=== PATIENT | male | born 1995 | race American Indian/Alaskan Native ===

== ENCOUNTER 2017-01-15 13:03 | Emergency (ER) | payer MEDICAID, OTHER ==
[2017-01-15 14:37] VITALS: BP 128/83
[2017-01-15 15:05] LABS: Basophils % (Auto) 0.3 % (0.0-1.8); Eosinophils % (Auto) 0.3 % (0.0-4.3); Hematocrit 46.7 % (35.5-45.6); Hemoglobin 15.1 gm/dl (11.8-15.2); Mean Corpuscular HGB Conc 32 % (32-34); Mean Corpuscular Hemoglobin 30 pg (28-32); Mean Corpuscular Volume 93 fl (84-94); Platelet Count 163 K/mm3 (140-440); Red Blood Count 5.02 M/mm3 (3.65-5.03); Red Cell Distribution Width 13.7 % (13.2-15.2); White Blood Count 12.5 K/mm3 (4.5-11.0)
[2017-01-15 15:20] LABS: Alanine Aminotransferase 15 units/L (7-56); Albumin 4.7 g/dL (3.9-5); Albumin/Globulin Ratio 1.6 %; Alkaline Phosphatase 54 units/L (35-129); Anion Gap 18 mmol/L; BUN/Creatinine Ratio 16.66; Bilirubin,Total 0.5 mg/dL (0.1-1.2); Blood Urea Nitrogen 10 mg/dL (9-20); Calcium 9.1 mg/dL (8.4-10.2); Carbon Dioxide 27 mmol/L (22-30); Chloride 100.2 mmol/L (98-107); Glucose 91 mg/dL (75-100); Lipase 14 units/L (13-60); Potassium 3.7 mmol/L (3.6-5.0); Sodium 141 mmol/L (137-145); Total Protein 7.7 g/dL (6.3-8.2)
[2017-01-15 15:58] LABS: Bilirubin,Urine NEG (Negative); Ketones,Urine NEG (Negative)
[2017-01-15 15:59] LABS: Blood,Urine NEG (Negative); Leukocyte Esterase,Urine NEG (Negative); Mucus,Urine FEW /HPF; Nitrite,Urine NEG (Negative); Protein,Urine <15 mg/dL mg/dL (Negative); Urobilinogen,Urine < 2.0 mg/dL (<2.0)
--- NOTE | 2017-01-17 21:35 | ED Elopement Review ---
ED Pt Elopement review - Results review Lab results: Laboratory Tests 01/15/17 01/15/17 01/15/17 14:50 14:50 15:48 WBC 12.5 H RBC 5.02 Hgb 15.1 Hct 46.7 H MCV 93 MCH 30 MCHC 32 RDW 13.7 Plt Count 163 Lymph % (Auto) 6.3 L [place] % (Auto) 5.8 Eos % (Auto) 0.3 Baso % (Auto) 0.3 Lymph # 0.8 L [place] # 0.7 Eos # 0.0 Baso # 0.0 Seg Neutrophils % 87.3 H Seg Neutrophils # 10.9 H Sodium 141 Potassium 3.7 Chloride 100.2 Carbon Dioxide 27 Anion Gap 18 BUN 10 Creatinine 0.6 L Estimated GFR > 60 BUN/Creatinine Ratio 16.66 Glucose 91 Calcium 9.1 Total Bilirubin 0.5 AST 22 ALT 15 Alkaline Phosphatase 54 Total Protein 7.7 Albumin 4.7 Albumin/Globulin Ratio 1.6 Lipase 14 Urine Color Yellow Urine Turbidity Clear Urine pH 7.0 Ur Specific [place] 1.021 Urine Protein <15 mg/dl Urine Glucose (UA) Neg Urine Ketones Neg Urine Blood Neg Urine Nitrite Neg Urine Bilirubin Neg Urine Urobilinogen < 2.0 Ur Leukocyte Esterase Neg Urine WBC (Auto) 1.0 Urine RBC (Auto) 2.0 U Epithel Cells (Auto) < 1.0 Urine Mucus Few - Call Back decision Pt Call Back Decision: No action required
== END 2017-01-15 21:05 | disposition left against medical advice (07) ==
LOC: ED 13:03
DX: R10.9 Unspecified abdominal pain (principal); R11.2 Nausea with vomiting, unspecified; R19.7 Diarrhea, unspecified; Z53.21 Procedure and treatment not carried out due to patient leaving prior to being seen by health care provider
CPT/HCPCS: 36415; 80053; 81001; 83690; 85025

== ENCOUNTER 2018-12-13 09:07 | Emergency (ER) | payer SELFPAY ==
[2018-12-13 09:29] VITALS: BP 130/64
--- NOTE | 2018-12-13 09:55 | Emergency Department Report ---
ED Rash HPI - HPI Chief Complaint: Extremity Injury, Lower Stated Complaint: FOOT PAIN EXTREME Time Seen by Provider: 12/13/18 09:36 Location: Lower Extremities Rash Symptoms: No Itching, No Facial Swelling, No Tongue/Oral Swelling, No Breathing Difficulties, No Choking Sensation, No Wheezing/Dyspnea, No Peeling, No Blistering, No Fever, No Lightheaded, No Malaise, No Myalgias Severity: mild Other History: PT IS A 23 YO AA MALE WHO COMES TO THE ER WITH FOOT PAIN. HE HAS BEEN SEEN HERE BEFORE. HE THINKS HE STEPPED ON A LEIGHANN THORN. CONSERVATIVE TREATMENT HAS BEEN DONE BUT PT STILL CO FOOT PAIN. THE AREA TODAY LOOKS MORE LIKE A PLANTAR WART THAN THORN. THIS AREA DOES LOOK DIFFERENT THAN AT THIS LAST VISIT. ED Review of Systems ROS: Stated complaint: FOOT PAIN EXTREME Other details as noted in HPI Comment: All other systems reviewed and negative Eyes: denies: as per HPI ENT: denies: ear pain Cardiovascular: denies: orthopnea Endocrine: denies: excessive sweating Gastrointestinal: denies: abdominal pain Genitourinary: denies: urgency Musculoskeletal: denies: back pain Skin: lesions Neurological: denies: headache, weakness Psychiatric: denies: anxiety Hematological/Lymphatic: denies: easy bleeding ED Past Medical Hx - Past Medical History Previous Medical History?: No Hx Psychiatric Treatment: Yes (bipolar & schizoprenia) - Surgical History Past Surgical History?: No - Social History Smoking Status: Current Every Day Smoker Substance Use Type: Alcohol - Medications Home Medications: Home Medications Medication Instructions Recorded Confirmed Last Taken Type Salicylic Acid [Compound W] 9.3 ml TP BID #1 each 12/13/18 Unknown Rx Rash Exam - Exam General: Vital signs noted. No distress. Alert and acting appropriately. HEENT: No Periorbital Edema, No Conjuctival Injection, No Chemosis, No Perioral Edema, No Tongue Edema, No Uvular Edema, No Compromised Airway, No Drooling Lungs: Yes Good Air Exchange, No Wheezes, No Ronchi, No Stridor, No Cough, No Labored Respirations, No Retractions, No Use of Accessory Muscles, No Other Abnormal Lung Sounds Heart: Yes Regular, No Murmur Skin: Yes Other (PENCIL ERASER SIZED AREA OF THICKENED DARK SKIN ON THE LATERAL SIDE OF FOOT. COULD BE AN ENCAPSULATED THORN OR WART. XRAY NO FB. ), No Urticarial Rash, No Maculopapular Rash, No Morbilliform rash, No Bulla(e), No Excoriations, No Weeping, No Tenderness, No Erythema, No Edema, No Encrustations Other: Positive: Abdomen Normal, Neurologic Normal, Musculoskeletal Normal ED Course Vital Signs 12/13/18 09:25 Temperature 97.8 F Pulse Rate 76 Respiratory 18 Rate Blood Pressure 130/64 O2 Sat by Pulse 98 Oximetry - I & D FOOT Type of Procedure: Simple Blade Size: 16 I & D Procedure: betadine prep Progress: SKIN OPENED AREA DESCRIBED. NO FB FOUND WOUND CARE GIVEN. WOUND CARE TAUGHT. ED Medical Decision Making - Radiology Data Radiology results: report reviewed, image reviewed NO FB - Medical Decision Making NO FB ON XRAY LESION HAS CHANGED SINCE LAST VISIT DUE TO PTS EMPAHATIC STANCE THAT THIS IS A THORN I'VE OPENED THE TOP LAYER OF SKIN- HARD CALLOUSED SKIN. NO FB FOUND. WILL TREAT WITH COMPOUND W PT HAS BEEN TOLD HE NEEDS TO SEE DERM REFERRAL GIVEN - Differential Diagnosis THORN V PLANTARS WART Critical care attestation.: If time is entered above; I have spent that time in minutes in the direct care of this critically ill patient, excluding procedure time. ED Disposition Clinical Impression: Foot pain, Wart Disposition: - TO HOME OR SELFCARE Is pt being admited?: No Does the pt Need Aspirin: No Condition: Stable Instructions: Plantar Wart (ED) Additional Instructions: continuing soaking foot med as ordered today follow up derm referral below pcp referral as well given below keep area clean and dry Prescriptions: Salicylic Acid [Compound W] 9.3 ml TP BID #1 each Referrals: PRIMARY RUIZ, [Primary Care Provider] - 3-5 Days JOSE G GABRIEL MD [Referring] - 3-5 Days [facility] [Outside] - 3-5 Days Forms: Work/School Release Form(ED) Time of Disposition: 10:18
--- NOTE | 2018-12-13 10:07 | XRay Report ---
RIGHT FOOT, 2 VIEWS History: Pain, possible foreign body. Findings: There is mild soft tissue swelling along the medial surface of the foot. No radiopaque foreign body is detected on x-ray. The bony structures and joint spaces are within normal limits. Impression: Nonspecific soft tissue swelling. No osseous abnormality or radiopaque foreign body is identified.
[2018-12-13] MEDS ORDERED: XYLOCAINE 1% 20 mL INFILTRATI ONE (10:11)
[2018-12-13] MEDS ORDERED: TRIPLE ANTIBIOTIC TP ONE (10:20)
[2018-12-13] MEDS ORDERED: IBUPROFEN PO ONE (10:20)
== END 2018-12-13 10:34 | disposition home or self-care (01) ==
LOC: ED 09:07
DX: B07.9 Viral wart, unspecified (principal); M79.671 Pain in right foot; F17.200 Nicotine dependence, unspecified, uncomplicated; F31.9 Bipolar disorder, unspecified; F20.9 Schizophrenia, unspecified
CPT/HCPCS: A6250

== ENCOUNTER 2019-01-29 11:53 | Emergency (ER) | payer OTHER ==
[2019-01-29 12:26] VITALS: BP 113/71
[2019-01-29] MEDS ORDERED: ASPIRIN PO ONE (12:26)
--- NOTE | 2019-01-29 12:28 | Emergency Department Report ---
Blank Doc - Documentation Documentation: This is a 23 y.o. male that presents with chest pain for 1 month that is inter mittent. Reports pain is radiating to left shoulder. Denies palpitations, SOB, fever, or cough. Ordered EKG and labs. Fast track for further evaluation.
[2019-01-29 12:48] LABS: Basophils # (Auto) 0.1 K/mm3 (0.0-0.1); Basophils % (Auto) 1.4 % (0.0-1.8); Eosinophils # (Auto) 0.2 K/mm3 (0.0-0.4); Eosinophils % (Auto) 3.6 % (0.0-4.3); Hematocrit 42.4 % (35.5-45.6); Hemoglobin 14.2 gm/dl (11.8-15.2); Lymphocytes % (Auto) 39.5 % (13.4-35.0); Mean Corpuscular HGB Conc 34 % (32-34); Mean Corpuscular Volume 91 fl (84-94); Monocytes # (Auto) 0.4 K/mm3 (0.0-0.8); Monocytes % (Auto) 8.2 % (0.0-7.3); Platelet Count 188 K/mm3 (140-440); Red Blood Count 4.65 M/mm3 (3.65-5.03); Red Cell Distribution Width 13.5 % (13.2-15.2)
[2019-01-29 13:10] LABS: BUN/Creatinine Ratio 21; Blood Urea Nitrogen 15 mg/dL (9-20); Calcium 9.2 mg/dL (8.4-10.2); Hemolysis Index 18
[2019-01-29] MEDS ORDERED: IBUPROFEN PO ONE (14:24)
--- NOTE | 2019-01-29 14:47 | Emergency Department Report ---
ED Chest Pain HPI - General Chief Complaint: Chest Pain Stated Complaint: CHEST PAIN Time Seen by Provider: 01/29/19 12:25 Source: patient Mode of arrival: Ambulatory Limitations: No Limitations - History of Present Illness Initial Comments: 23-year-old male with a past medical history of bipolar and schizophrenia presents to the hospital. Intermittent chest pain 1 month. Pain is at the upper chest radiating to the shoulder. Pain is intermittent, sharp, and achy in nature. Worse with movement of his left arm. He denies shortness of breath, nausea, vomiting, or diaphoresis. He claims to have a history of "heart problems". He reports having similar chest pain last year that was cleared by cardiology after testing. He denies history of PEs as DVT, calf tenderness, recent travel, or leg edema. States he has also been tested for blood clot in the past. Patient performs a lot of heavy lifting at his job. He is not taking anything for pain. Severity scale (0 -10): 7 - Related Data Previous Rx's Medication Instructions Recorded Last Taken Type Salicylic Acid [Compound W] 9.3 ml TP BID #1 each 12/13/18 Unknown Rx Ibuprofen [Motrin] 800 mg PO Q8HR PRN #30 tablet 01/29/19 Unknown Rx Allergies Allergy/AdvReac Type Severity Reaction Status Date / Time No Known Allergies Allergy Verified 01/29/19 11:55 Heart Score - HEART Score History: Slightly suspicious EKG: Non-specific Age: < 45 Risk factors: 1-2 risk factors Troponin: < normal limit HEART Score: 2 ED Review of Systems ROS: Stated complaint: CHEST PAIN Other details as noted in HPI Comment: All other systems reviewed and negative ED Past Medical Hx - Past Medical History Hx Psychiatric Treatment: Yes (bipolar & schizoprenia) - Surgical History Past Surgical History?: No - Social History Smoking Status: Current Every Day Smoker Substance Use Type: Alcohol - Medications Home Medications: Home Medications Medication Instructions Recorded Confirmed Last Taken Type Salicylic Acid [Compound W] 9.3 ml TP BID #1 each 12/13/18 Unknown Rx Ibuprofen [Motrin] 800 mg PO Q8HR PRN #30 tablet 01/29/19 Unknown Rx ED Physical Exam - General Limitations: No Limitations - Other Other exam information: General: No limitations, patient is alert in no acute distress Head exam: Atraumatic, normocephalic Eyes exam: Normal appearance ENT: Moist mucous membrane Neck exam: Normal inspection, full range of motion, no meningismus nontender Respiratory exam: Clear to auscultation bilateral, no wheezes, rales, crackles Cardiovascular: Normal rate and rhythm, normal heart sounds. Reproducible tenderness to the left chest area pectoralis muscle. Also worsens with activities that engage the pectoralis muscle pain Abdomen: Soft, nondistended, and nontender, with normal bowel sounds, no rebound, or guarding Extremity: Full range of motion normal inspection no deformity, no calf tenderness or edema Back: Normal Inspection, full range of motion, no tenderness Neurologic: Alert, oriented x3, cranial nerves intact, no motor or sensory deficit Psychiatric: normal affect, normal mood Skin: Warm, dry, intact ED Course Vital Signs 01/29/19 01/29/19 12:25 14:34 Temperature 97.9 F Pulse Rate 60 Respiratory 16 16 Rate Blood Pressure 113/71 O2 Sat by Pulse 100 Oximetry ED Medical Decision Making - Lab Data Result diagrams: 01/29/19 12:37 01/29/19 12:37 Lab Results 01/29/19 01/29/19 Range/Units 12:37 12:37 WBC 5.0 (4.5-11.0) K/mm3 RBC 4.65 (3.65-5.03) M/mm3 Hgb 14.2 (11.8-15.2) gm/dl Hct 42.4 (35.5-45.6) % MCV 91 (84-94) fl MCH 31 (28-32) pg MCHC 34 (32-34) % RDW 13.5 (13.2-15.2) % Plt Count 188 (140-440) K/mm3 Lymph % (Auto) 39.5 H (13.4-35.0) % [place] % (Auto) 8.2 H (0.0-7.3) % Eos % (Auto) 3.6 (0.0-4.3) % Baso % (Auto) 1.4 (0.0-1.8) % Lymph # 2.0 (1.2-5.4) K/mm3 [place] # 0.4 (0.0-0.8) K/mm3 Eos # 0.2 (0.0-0.4) K/mm3 Baso # 0.1 (0.0-0.1) K/mm3 Seg Neutrophils % 47.3 (40.0-70.0) % Seg Neutrophils # 2.4 (1.8-7.7) K/mm3 Sodium 141 (137-145) mmol/L Potassium 4.8 (3.6-5.0) mmol/L Chloride 103.6 (98-107) mmol/L Carbon Dioxide 27 (22-30) mmol/L Anion Gap 15 mmol/L BUN 15 (9-20) mg/dL Creatinine 0.7 L (0.8-1.5) mg/dL Estimated GFR > 60 ml/min BUN/Creatinine Ratio 21 % Glucose 90 (75-100) mg/dL Calcium 9.2 (8.4-10.2) mg/dL Troponin T < 0.010 (0.00-0.029) ng/mL - EKG Data -: EKG Interpreted by Me EKG shows normal: sinus rhythm, ST-T waves (early re-pole) Rate: normal (60) - Medical Decision Making Patient presented to [facility] muscle skeletal pain with history of heavy lifting at his job. Will be treated symptomatically and outpatient follow-up encouraged - Differential Diagnosis a tubal chest pain, pneumothorax, MSK pain, MA, PE Critical Care Time: No Critical care attestation.: If time is entered above; I have spent that time in minutes in the direct care of this critically ill patient, excluding procedure time. ED Disposition Clinical Impression: Chest wall muscle strain Disposition: DC-01 TO HOME OR SELFCARE Is pt being admited?: No Does the pt Need Aspirin: No Condition: Stable Instructions: Muscle Strain (ED), Thoracic Pain (ED) Additional Instructions: Take the medication as prescribed. Follow up with your doctor or the clinic/doctor provided. Return if symptoms worsen as indicated by your discharge instructions Prescriptions: Ibuprofen [Motrin] 800 mg PO Q8HR PRN #30 tablet PRN Reason: Pain , Severe (7-10) Referrals: GIANNI DENINSON MD [Primary Care Provider] - 3-5 Days Forms: Work/School Release Form(ED) Time of Disposition: 14:48
== END 2019-01-29 15:14 | disposition home or self-care (01) ==
LOC: ED 11:53
DX: S29.011A Strain of muscle and tendon of front wall of thorax, initial encounter (principal); F31.9 Bipolar disorder, unspecified; F20.9 Schizophrenia, unspecified; F17.200 Nicotine dependence, unspecified, uncomplicated; X50.0XXA Overexertion from strenuous movement or load, initial encounter; Y93.89 Activity, other specified; Y99.0 Civilian activity done for income or pay; Y92.69 Other specified industrial and construction area as the place of occurrence of the external cause
CPT/HCPCS: 36415; 80048; 82962; 84484; 85025; 93005; 93010; 99283

== ENCOUNTER 2019-03-25 09:24 | Emergency (ER) | payer SELFPAY ==
[2019-03-25 09:43] VITALS: BP 131/86
[2019-03-25 10:40] LABS: Basophils % (Auto) 1.1 % (0.0-1.8); Eosinophils # (Auto) 0.2 K/mm3 (0.0-0.4); Eosinophils % (Auto) 4.2 % (0.0-4.3); Hematocrit 43.6 % (35.5-45.6); Hemoglobin 14.6 gm/dl (11.8-15.2); Lymphocytes # (Auto) 1.5 K/mm3 (1.2-5.4); Lymphocytes % (Auto) 36.6 % (13.4-35.0); Mean Corpuscular HGB Conc 33 % (32-34); Mean Corpuscular Volume 91 fl (84-94); Monocytes # (Auto) 0.4 K/mm3 (0.0-0.8); Monocytes % (Auto) 9.5 % (0.0-7.3); Platelet Count 174 K/mm3 (140-440); Red Blood Count 4.78 M/mm3 (3.65-5.03); Red Cell Distribution Width 13.3 % (13.2-15.2)
--- NOTE | 2019-03-25 10:40 | XRay Report ---
ROUTINE CHEST, TWO VIEWS: HISTORY: Abdominal pain. The trachea, heart, mediastinal contour, lung hernandez and bony thorax are unremarkable. IMPRESSION: Unremarkable chest x-ray.
[2019-03-25 10:50] LABS: BUN/Creatinine Ratio 16; Blood Urea Nitrogen 11 mg/dL (9-20); Calcium 8.8 mg/dL (8.4-10.2); Hemolysis Index 12
--- NOTE | 2019-03-25 12:54 | Emergency Department Report ---
HPI - General Chief Complaint: Abdominal Pain Time Seen by Provider: 03/25/19 12:17 - HPI HPI: 23-year-old male presents to the emergency Department with a request for a general checkup. He says that he has been having multiple episodes of nausea and vomiting, generalized abdominal pain, and some chest wall pain. He says that he wants to be checked to make sure that he does not have cancer. He is a tobacco smoker and says that lung cancer runs in his family. The patient has been seen here for similar complaints in the past. He does not have a primary care physician. He has a past history of bipolar disorder and schizophrenia. No recent travel or sick contacts at home. He has not taken anything recently for his symptoms prior to arrival. ED Past Medical Hx - Past Medical History Hx Psychiatric Treatment: Yes (bipolar & schizoprenia) - Social History Smoking Status: Light Tobacco Smoker - Medications Home Medications: Home Medications Medication Instructions Recorded Confirmed Last Taken Type Salicylic Acid [Compound W] 9.3 ml TP BID #1 each 12/13/18 Unknown Rx Ibuprofen [Motrin] 800 mg PO Q8HR PRN #30 tablet 01/29/19 Unknown Rx Ondansetron [Zofran Odt] 4 mg PO Q8HR PRN #15 tab.rapdis 03/25/19 Unknown Rx ED Review of Systems ROS: Stated complaint: VOMIT/PAIN IN LOWER STOMACH Other details as noted in HPI Comment: All other systems reviewed and negative Constitutional: denies: chills, fever Eyes: denies: eye pain, vision change ENT: denies: ear pain, throat pain Respiratory: denies: cough, shortness of breath Cardiovascular: chest pain (chest wall pain) Gastrointestinal: abdominal pain, nausea, vomiting Genitourinary: denies: urgency, dysuria Musculoskeletal: denies: back pain, arthralgia Skin: denies: rash, lesions Neurological: denies: headache, weakness Physical Exam - Physical Exam Vital Signs: Vital Signs 03/25/19 09:40 Temperature 98.3 F Pulse Rate 82 Respiratory 16 Rate Blood Pressure 131/86 O2 Sat by Pulse 99 Oximetry Physical Exam: GENERAL: The patient is well-developed well-nourished. HENT: Normocephalic. Atraumatic. Patient has moist mucous membranes. EYES: Extraocular motions are intact. NECK: Supple. Trachea is midline. CHEST/LUNGS: Clear to auscultation. There is no respiratory distress noted. HEART/CARDIOVASCULAR: Regular. There is no tachycardia. There is no murmur. ABDOMEN: Abdomen is soft, nontender. Patient has normal bowel sounds. There is no abdominal distention. SKIN: Skin is warm and dry. NEURO: The patient is awake, alert, and oriented. The patient is cooperative. The patient has no focal neurologic deficits. The patient has normal speech. MUSCULOSKELETAL: There is no tenderness or deformity. There is no limitation range of motion. There is no evidence of acute injury. ED Course Vital Signs 03/25/19 09:40 Temperature 98.3 F Pulse Rate 82 Respiratory 16 Rate Blood Pressure 131/86 O2 Sat by Pulse 99 Oximetry ED Medical Decision Making - Lab Data Result diagrams: 03/25/19 10:10 03/25/19 10:10 - EKG Data -: EKG Interpreted by Me EKG shows normal: sinus rhythm, axis, intervals, QRS complexes, ST-T waves Rate: normal - EKG Data When compared to previous EKG there are: previous EKG unavailable Interpretation: normal EKG - Radiology Data Radiology results: image reviewed interpreted by me: Chest x-ray does not show any acute process. There are no pleural effusions, obvious pneumonia and there is no pneumothorax. Abdominal x-ray shows nonspecific nonobstructive bowel gas. - Medical Decision Making This patient presents to the emergency department with some chronic abdominal pain and chronic chest pains. He is asking to be checked out to make sure that he does not have cancer. Patient had a CBC through triage that did not show any leukocytosis, leukopenia, anemia, or any other acute process. He also had a normal metabolic panel. Chest x-ray did not show any focal consolidation, pne umothorax, pneumonia, pleural effusions, or any other acute process. Abdominal x-ray shows nonspecific nonobstructive bowel gas. His vital signs and stable throughout his ED course. He appears safe for discharge home at this time but we had a long conversation about the importance of follow-up with a primary care physician for yearly physicals and further evaluation. Given his alleged family history of lung cancer and his concerns, we also discussed quitting smoking. He will return to the ER with any worsening symptoms or any acute distress. - Differential Diagnosis gastritis, colitis, costochondritis, pneumonia Critical Care Time: No Critical care attestation.: If time is entered above; I have spent that time in minutes in the direct care of this critically ill patient, excluding procedure time. ED Disposition Clinical Impression: Chest wall pain, Tobacco use disorder Abdominal pain Qualifiers: Abdominal location: generalized Qualified Code(s): R10.84 - Generalized abdominal pain Disposition: TO HOME OR SELFCARE Is pt being admited?: No Condition: Stable Instructions: How to Stop Smoking (ED), Costochondritis (ED), Abdominal Pain (ED) Additional Instructions: Please follow up with a primary care physician for further evaluation of your abdominal pain and chest wall pains. Return to the emergency Department with any worsening of your symptoms or any acute distress. Prescriptions: Ondansetron [Zofran Odt] 4 mg PO Q8HR PRN #15 tab.rapdis PRN Reason: Nausea Referrals: ITALO KRAUS MD [Staff Physician] - 3-5 Days [facility] [Outside] - 3-5 Days Forms: Work/School Release Form(ED) Time of Disposition: 13:39
--- NOTE | 2019-03-25 13:23 | XRay Report ---
ABDOMINAL SERIES: History: Cough, abdominal pain. Erect chest film shows no acute or significant changes involving the heart or lung hernandez. There is no evidence of free air beneath the diaphragms. The gas pattern within the abdomen is unremarkable. There is no evidence of bowel dilatation, significant air-fluid levels, or masses. Organ shadows are unremarkable. IMPRESSION: Abdominal series within normal limits.
== END 2019-03-25 13:50 | disposition home or self-care (01) ==
LOC: ED 09:24
DX: R10.84 Generalized abdominal pain (principal); R11.2 Nausea with vomiting, unspecified; R07.89 Other chest pain; F31.9 Bipolar disorder, unspecified; F20.9 Schizophrenia, unspecified; F17.200 Nicotine dependence, unspecified, uncomplicated
CPT/HCPCS: 36415; 71046; 74022; 80048; 85025; 93005; 93010

== ENCOUNTER 2019-09-19 08:44 | Emergency (ER) | payer SELFPAY ==
--- NOTE | 2019-09-19 09:56 | Emergency Department Report ---
ED Extremity Problem HPI - General Chief complaint: Extremity Problem,Nontraumatic Stated complaint: CHEST PAIN Time Seen by Provider: 09/19/19 09:04 Source: patient Mode of arrival: Ambulatory Limitations: No Limitations - History of Present Illness Initial comments: This is a 24-year-old male with no prior medical history of presents to ED complaining of left upper shoulder chest pain testing going on since the beginning of this year. 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 Patient states that he is not having any pain at the moment on his chest or shortness of breath. Since his pain is only worsened when he is lifting and is localized to his upper left shoulder region. He he denies any trauma or injuries MD Complaint: extremity pain Location: left History of Same: Yes -: Yes arthralgia Radiation: none Severity scale (0 -10): 4 Quality: aching Improves with: nothing Worsens with: other (lifting) Associated Symptoms: denies other symptoms - Related Data Previous Rx's Medication Instructions Recorded Last Taken Type Salicylic Acid [Compound W] 9.3 ml TP BID #1 each 12/13/18 Unknown Rx Ibuprofen [Motrin] 800 mg PO Q8HR PRN #30 tablet 01/29/19 Unknown Rx Ondansetron [Zofran Odt] 4 mg PO Q8HR PRN #15 tab.rapdis 03/25/19 Unknown Rx Cyclobenzaprine [Flexeril] 10 mg PO QHS PRN #20 tablet 09/19/19 Unknown Rx Ibuprofen [Motrin 800 MG tab] 800 mg PO Q8HR PRN #30 tablet 09/19/19 Unknown Rx Allergies Allergy/AdvReac Type Severity Reaction Status Date / Time No Known Allergies Allergy Verified 09/19/19 08:46 ED Review of Systems ROS: Stated complaint: CHEST PAIN Other details as noted in HPI Comment: All other systems reviewed and negative ED Past Medical Hx - Past Medical History Previous Medical History?: No Hx Psychiatric Treatment: Yes (bipolar & schizoprenia) - Surgical History Past Surgical History?: No - Social History Smoking Status: Current Every Day Smoker Substance Use Type: None - Medications Home Medications: Home Medications Medication Instructions Recorded Confirmed Last Taken Type Salicylic Acid [Compound W] 9.3 ml TP BID #1 each 12/13/18 Unknown Rx Ibuprofen [Motrin] 800 mg PO Q8HR PRN #30 tablet 01/29/19 Unknown Rx Ondansetron [Zofran Odt] 4 mg PO Q8HR PRN #15 tab.rapdis 03/25/19 Unknown Rx Cyclobenzaprine [Flexeril] 10 mg PO QHS PRN #20 tablet 09/19/19 Unknown Rx Ibuprofen [Motrin 800 MG tab] 800 mg PO Q8HR PRN #30 tablet 09/19/19 Unknown Rx ED Physical Exam - General Limitations: No Limitations General appearance: alert, in no apparent distress - Head Head exam: Present: atraumatic, normocephalic - Eye Eye exam: Present: normal appearance - ENT ENT exam: Present: mucous membranes moist - Neck Neck exam: Present: normal inspection. Absent: tenderness - Respiratory Respiratory exam: Present: normal lung sounds bilaterally. Absent: respiratory distress, wheezes, chest wall tenderness - Cardiovascular Cardiovascular Exam: Present: regular rate, normal rhythm. Absent: systolic murmur, diastolic murmur, rubs, gallop - GI/Abdominal GI/Abdominal exam: Present: soft, normal bowel sounds - Rectal Rectal exam: Present: deferred - Extremities Exam Extremities exam: Present: normal inspection, full ROM, tenderness (with lifting left shoulder up), normal capillary refill. Absent: joint swelling - Back Exam Back exam: Present: normal inspection, full ROM. Absent: tenderness - Neurological Exam Neurological exam: Present: alert, oriented X3 - Psychiatric Psychiatric exam: Present: normal affect, normal mood - Skin Skin exam: Present: warm, dry, intact, normal color. Absent: rash ED Course Vital Signs 09/19/19 08:50 Temperature 97.7 F Pulse Rate 78 Respiratory 16 Rate Blood Pressure 137/71 O2 Sat by Pulse 100 Oximetry ED Medical Decision Making - Medical Decision Making 38-year-old female presents to ED with myalgia of upper chest wall muscle of the left shoulder ED course: Vital signs are normal patient is in no acute distress Discussed with patient follow-up with primary care physician. Discussed the patient and take medications as prescribed. Patient has no neurological deficit. Patient is alert and oriented 3 and understands all instructions given. Discussed drowsiness effect of Flexeril makes her drowsy and not to operate machinery while taking flexeril Critical care attestation.: If time is entered above; I have spent that time in minutes in the direct care of this critically ill patient, excluding procedure time. ED Disposition Clinical Impression: Acute costochondritis Disposition: DC-01 TO HOME OR SELFCARE Is pt being admited?: No Does the pt Need Aspirin: No Condition: Stable Instructions: Musculoskeletal Pain (ED), Trigger Point Pain (ED) Additional Instructions: Make sure to follow up with the primary care physician as discussed. Take all your medications as you've been prescribed. If you have any worsening symptoms or develop new symptoms please return to ED immediately. Referrals: CROW SORIANO MD [Referring] - 3-5 Days [facility] [Outside] - 3-5 Days [facility] [Outside] - 3-5 Days Forms: Work/School Release Form(ED) Time of Disposition: 09:58
[2019-09-19 10:17] VITALS: BP 131/70
== END 2019-09-19 10:16 | disposition home or self-care (01) ==
LOC: ED 08:44
DX: M94.0 Chondrocostal junction syndrome [Tietze] (principal); F17.200 Nicotine dependence, unspecified, uncomplicated; F31.9 Bipolar disorder, unspecified; F20.9 Schizophrenia, unspecified

== ENCOUNTER 2020-07-14 21:04 | Emergency (ER) | payer OTHER ==
--- NOTE | 2020-07-14 21:11 | Event Note ---
ED Screening Note Date of service: 07/14/20 Time: 21:09 ED Screening Note: c/o left chest pain x 4 hours radiating down left arm This initial assessment/diagnostic orders/clinical plan/treatment(s) is/are subject to change based on patients health status, clinical progression and re-assessment by fellow clinical providers in the ED. Further treatment and workup at subsequent clinical providers discretion. Patient/guardian urged not to elope from the ED as their condition may be serious if not clinically assessed and managed. Initial orders include: labs CXR
[2020-07-14 21:15] VITALS: BP 152/92
[2020-07-14 21:38] LABS: Basophils # (Auto) 0.1 K/mm3 (0.0-0.1); Eosinophils # (Auto) 0.2 K/mm3 (0.0-0.4); Eosinophils % (Auto) 3.2 % (0.0-4.3); Hematocrit 41.1 % (35.5-45.6); Hemoglobin 13.7 gm/dl (11.8-15.2); Lymphocytes # (Auto) 2.6 K/mm3 (1.2-5.4); Lymphocytes % (Auto) 49.6 % (13.4-35.0); Mean Corpuscular HGB Conc 33 % (32-34); Mean Corpuscular Volume 92 fl (84-94); Monocytes # (Auto) 0.5 K/mm3 (0.0-0.8); Monocytes % (Auto) 9.7 % (0.0-7.3); Platelet Count 160 K/mm3 (140-440); Red Blood Count 4.49 M/mm3 (3.65-5.03); Red Cell Distribution Width 13.6 % (13.2-15.2)
--- NOTE | 2020-07-14 21:53 | XRay Report ---
CHEST 2 VIEWS INDICATION / CLINICAL INFORMATION: chest pain. COMPARISON: Radiograph dated 03/25/2019. FINDINGS: SUPPORT DEVICES: None. HEART / MEDIASTINUM: No significant abnormality. LUNGS / PLEURA: No significant pulmonary or pleural abnormality. No pneumothorax. ADDITIONAL FINDINGS: No significant additional findings. IMPRESSION: No acute cardiopulmonary abnormality. Signer Name: Ashish Matthews MD Signed: 07/14/2020 9:49 PM Workstation Name: [id number]
[2020-07-14 22:01] LABS: Alanine Aminotransferase 11 units/L (7-56); Albumin 4.7 g/dL (3.9-5); BUN/Creatinine Ratio 15; Blood Urea Nitrogen 12 mg/dL (9-20); Calcium 9.2 mg/dL (8.4-10.2); Hemolysis Index 12
--- NOTE | 2020-07-15 03:56 | Emergency Department Report ---
ED General Adult HPI - General Chief complaint: Chest Pain Stated complaint: CHEST PAIN AND LEFT ARM PAIN Time Seen by Provider: 07/14/20 21:09 Source: patient Mode of arrival: Ambulatory Limitations: No Limitations - History of Present Illness -: Gradual Quality: dull Consistency: constant Improves with: none Worsens with: none Associated Symptoms: denies other symptoms Treatments Prior to Arrival: none - Related Data Previous Rx's Medication Instructions Recorded Last Taken Type Salicylic Acid [Compound W] 9.3 ml TP BID #1 each 12/13/18 Unknown Rx Ibuprofen [Motrin] 800 mg PO Q8HR PRN #30 tablet 01/29/19 Unknown Rx Ondansetron [Zofran Odt] 4 mg PO Q8HR PRN #15 tab.rapdis 03/25/19 Unknown Rx Cyclobenzaprine [Flexeril] 10 mg PO QHS PRN #20 tablet 09/19/19 Unknown Rx Ibuprofen [Motrin 800 MG tab] 800 mg PO Q8HR PRN #30 tablet 09/19/19 Unknown Rx Ketorolac [Toradol] 10 mg PO Q6H PRN #10 tablet 07/15/20 Unknown Rx Allergies Allergy/AdvReac Type Severity Reaction Status Date / Time No Known Allergies Allergy Verified 09/19/19 08:46 ED Review of Systems ROS: Stated complaint: CHEST PAIN AND LEFT ARM PAIN Other details as noted in HPI Comment: All other systems reviewed and negative ED Past Medical Hx - Past Medical History Previous Medical History?: Yes Hx Psychiatric Treatment: Yes (bipolar & schizoprenia) - Surgical History Past Surgical History?: No - Social History Smoking Status: Never Smoker Substance Use Type: None - Medications Home Medications: Home Medications Medication Instructions Recorded Confirmed Last Taken Type Salicylic Acid [Compound W] 9.3 ml TP BID #1 each 12/13/18 Unknown Rx Ibuprofen [Motrin] 800 mg PO Q8HR PRN #30 tablet 01/29/19 Unknown Rx Ondansetron [Zofran Odt] 4 mg PO Q8HR PRN #15 tab.rapdis 03/25/19 Unknown Rx Cyclobenzaprine [Flexeril] 10 mg PO QHS PRN #20 tablet 09/19/19 Unknown Rx Ibuprofen [Motrin 800 MG tab] 800 mg PO Q8HR PRN #30 tablet 09/19/19 Unknown Rx Ketorolac [Toradol] 10 mg PO Q6H PRN #10 tablet 07/15/20 Unknown Rx ED Physical Exam - General Limitations: No Limitations General appearance: alert, in no apparent distress - Head Head exam: Present: atraumatic, normocephalic - Eye Eye exam: Present: normal appearance - ENT ENT exam: Present: mucous membranes moist - Neck Neck exam: Present: normal inspection - Respiratory Respiratory exam: Present: normal lung sounds bilaterally, chest wall tenderness (Reproducible chest pain with palpation and opposed a deduction flexion and extension. There is tenderness along the pectoral major lateral aspect with deep palpation. No bruising no crepitus no subcutaneous emphysema). Absent: respiratory distress - Cardiovascular Cardiovascular Exam: Present: regular rate, normal rhythm. Absent: systolic murmur, diastolic murmur, rubs, gallop - GI/Abdominal GI/Abdominal exam: Present: soft, normal bowel sounds - Rectal Rectal exam: Present: deferred - Extremities Exam Extremities exam: Present: normal inspection - Back Exam Back exam: Present: normal inspection - Neurological Exam Neurological exam: Present: alert, oriented X3 - Psychiatric Psychiatric exam: Present: normal affect, normal mood - Skin Skin exam: Present: warm, dry, intact, normal color. Absent: rash ED Course Vital Signs 07/14/20 21:12 Temperature 98.1 F Pulse Rate 90 Respiratory 16 Rate Blood Pressure 152/92 [Left] O2 Sat by Pulse 95 Oximetry ED Medical Decision Making - Lab Data Result diagrams: 07/14/20 21:20 07/14/20 21:20 Critical care attestation.: If time is entered above; I have spent that time in minutes in the direct care of this critically ill patient, excluding procedure time. ED Disposition Clinical Impression: Musculoskeletal chest pain Disposition: DC-01 TO HOME OR SELFCARE Is pt being admited?: No Does the pt Need Aspirin: No Condition: Stable Instructions: Chest Pain (ED), Costochondritis (ED) Prescriptions: Ketorolac [Toradol] 10 mg PO Q6H PRN #10 tablet PRN Reason: Pain Referrals: PRIMARY CARE, [Primary Care Provider] - 3-5 Days MANSI SOLANO MD [Staff Physician] - 3-5 Days
== END 2020-07-15 04:19 | disposition home or self-care (01) ==
LOC: ED 21:04
DX: R07.89 Other chest pain (principal); M79.602 Pain in left arm; F25.0 Schizoaffective disorder, bipolar type; Z98.890 Other specified postprocedural states; Z79.899 Other long term (current) drug therapy
CPT/HCPCS: 36415; 71046; 80053; 84484; 85025; 93005

== ENCOUNTER 2021-03-10 21:04 | Emergency (ER) | payer OTHER ==
[2021-03-10 23:01] VITALS: BP 134/81
--- NOTE | 2021-03-11 01:46 | Emergency Department Report ---
<JARED MEEK III - Last Filed: 03/11/21 02:26> ED General Adult HPI - General Chief complaint: Chest Pain Stated complaint: VACCINE SHOT REACTION Time Seen by Provider: 03/11/21 00:52 - Related Data Previous Rx's Medication Instructions Recorded Last Taken Type Salicylic Acid [Compound W] 9.3 ml TP BID #1 each 12/13/18 Unknown Rx Ibuprofen [Motrin] 800 mg PO Q8HR PRN #30 tablet 01/29/19 Unknown Rx Ondansetron [Zofran Odt] 4 mg PO Q8HR PRN #15 tab.rapdis 03/25/19 Unknown Rx Cyclobenzaprine [Flexeril] 10 mg PO QHS PRN #20 tablet 09/19/19 Unknown Rx Ibuprofen [Motrin 800 MG tab] 800 mg PO Q8HR PRN #30 tablet 09/19/19 Unknown Rx Ketorolac [Toradol] 10 mg PO Q6H PRN #10 tablet 07/15/20 Unknown Rx Allergies Allergy/AdvReac Type Severity Reaction Status Date / Time No Known Allergies Allergy Verified 09/19/19 08:46 ED Past Medical Hx - Medications Home Medications: Home Medications Medication Instructions Recorded Confirmed Last Taken Type Salicylic Acid [Compound W] 9.3 ml TP BID #1 each 12/13/18 Unknown Rx Ibuprofen [Motrin] 800 mg PO Q8HR PRN #30 tablet 01/29/19 Unknown Rx Ondansetron [Zofran Odt] 4 mg PO Q8HR PRN #15 tab.rapdis 03/25/19 Unknown Rx Cyclobenzaprine [Flexeril] 10 mg PO QHS PRN #20 tablet 09/19/19 Unknown Rx Ibuprofen [Motrin 800 MG tab] 800 mg PO Q8HR PRN #30 tablet 09/19/19 Unknown Rx Ketorolac [Toradol] 10 mg PO Q6H PRN #10 tablet 07/15/20 Unknown Rx ED Course - Reevaluation(s) Reevaluation #1: I reviewed the findings and management of this patient in real-time and I have personally seen and examined this patient and participated in the decision making for this patient with the midlevel. Patient is a 25-year-old male who presents for shortness of breath and chest pain. Patient states he recently had had a chest done 16 and is concerned about a blood clot. Patient states his chest pain is worse with movement and better with rest. Patient states that shortness of breath better with rest and worse with movement and exertion. I examined the patient. Patient's lung sounds are clear. Patient has left- sided chest pain tenderness to palpation. Palpation of the chest wall reproduces the symptoms. Patient's lung sounds are clear. Patient's CV exam shows a normal S1-S2. No murmurs noted. Patient's skin is normal. Patient's abdominal exam is negative. 03/11/21 02:26 ED Medical Decision Making - Lab Data Result diagrams: 03/11/21 01:37 ED Disposition Clinical Impression: Musculoskeletal chest pain Disposition: TO HOME OR SELFCARE Condition: Stable Instructions: Nonspecific Chest Pain, Adult, Costochondritis Additional Instructions: Your D-dimer was normal. Examination is more consistent with musculoskeletal chest pain. It is very unlikely you have any of the reported clotting side effects from the Vic & Vic vaccination given your gender, past medical history, and the overall ratio vaccination to blood clot. Please use Tylenol and Motrin and ice to help your pain Referrals: PRIMARY CARE, [Primary Care Provider] - 3-5 Days <BILLY TAYLOR - Last Filed: 03/11/21 03:56> ED General Adult HPI - General Source: patient Mode of arrival: Ambulatory Limitations: No Limitations - History of Present Illness Initial comments: 25-year-old Belgian male presents emerged department complaining of having chest pain that worsens with palpation and range of motion for the last day. He reports receiving the Vic & Vic vaccine about a week ago and now due to the news and information is worried about having developed a blood clot and wants to be evaluated. Reports no shortness of breath, no fever, chills, sweats, lotion any swelling. Radiation: non-radiation Quality: stabbing, aching Consistency: intermittent Worsens with: movement (Sternal border and palpation of the region) Associated Symptoms: denies: confusion, chest pain, diaphoresis, loss of appetite, weakness ED Review of Systems ROS: Stated complaint: VACCINE SHOT REACTION Other details as noted in HPI Comment: All other systems reviewed and negative ED Past Medical Hx - Past Medical History Previous Medical History?: No Hx Psychiatric Treatment: Yes (bipolar & schizoprenia) - Surgical History Past Surgical History?: No - Social History Smoking Status: Former Smoker Substance Use Type: None ED Physical Exam - General Limitations: No Limitations General appearance: alert, in no apparent distress - Head Head exam: Present: atraumatic, normocephalic - Eye Eye exam: Present: normal appearance, PERRL, EOMI Pupils: Present: normal accommodation - ENT ENT exam: Present: normal exam, normal orophraynx, mucous membranes moist, TM's normal bilaterally - Neck Neck exam: Present: normal inspection, full ROM - Respiratory Respiratory exam: Present: normal lung sounds bilaterally, chest wall tenderness (Sternal border with opposed adduction). Absent: respiratory distress - Cardiovascular Cardiovascular Exam: Present: regular rate, normal rhythm. Absent: systolic murmur, diastolic murmur, rubs, gallop, clicks - GI/Abdominal GI/Abdominal exam: Present: soft, normal bowel sounds - Rectal Rectal exam: Present: deferred - Extremities Exam Extremities exam: Present: normal inspection - Back Exam Back exam: Present: normal inspection - Neurological Exam Neurological exam: Present: alert, oriented X3 - Psychiatric Psychiatric exam: Present: normal affect, normal mood - Skin Skin exam: Present: warm, dry, intact, normal color. Absent: rash ED Course Vital Signs 03/10/21 22:59 Temperature 98.2 F Pulse Rate 73 Respiratory 18 Rate Blood Pressure 134/81 O2 Sat by Pulse 99 Oximetry ED Medical Decision Making - Lab Data Result diagrams: 03/11/21 01:37 03/11/21 01:37 Critical care attestation.: If time is entered above; I have spent that time in minutes in the direct care of this critically ill patient, excluding procedure time. ED Disposition Is pt being admited?: No Does the pt Need Aspirin: No
[2021-03-11 02:07] LABS: Hematocrit 41.7 % (35.5-45.6); Hemoglobin 14.1 gm/dl (11.8-15.2); Mean Corpuscular HGB Conc 34 % (32-34); Mean Corpuscular Volume 93 fl (84-94); Platelet Count 184 K/mm3 (140-440); Red Cell Distribution Width 13.4 % (13.2-15.2)
[2021-03-11 02:20] LABS: Eosinophils % (Auto) 2.6 % (0.0-4.3); Lymphocytes % (Auto) 53.5 % (13.4-35.0)
[2021-03-11 02:21] LABS: Basophils # (Auto) 0.1 K/mm3 (0.0-0.1); Basophils % (Auto) 1.2 % (0.0-1.8); Eosinophils # (Auto) 0.1 K/mm3 (0.0-0.4); Lymphocytes # (Auto) 2.3 K/mm3 (1.2-5.4); Monocytes # (Auto) 0.6 K/mm3 (0.0-0.8)
[2021-03-11 02:30] LABS: Alanine Aminotransferase 12 units/L (7-56); Albumin 4.8 g/dL (3.9-5); Blood Urea Nitrogen 19 mg/dL (9-20); Calcium 9.1 mg/dL (8.4-10.2); Hemolysis Index 2
[2021-03-11 02:44] LABS: BUN/Creatinine Ratio 27
[2021-03-11] MEDS ORDERED: IBUPROFEN 600 MG TAB PO ONE (04:41)
== END 2021-03-11 04:45 | disposition home or self-care (01) ==
LOC: ED 21:04
DX: R07.89 Other chest pain (principal); F25.0 Schizoaffective disorder, bipolar type; Z87.891 Personal history of nicotine dependence; Z79.899 Other long term (current) drug therapy
CPT/HCPCS: 36415; 80053; 85025; 85379

== ENCOUNTER 2022-01-29 20:06 | Emergency (ER) | payer OTHER ==
[2022-01-29 21:40] VITALS: BP 131/81
--- NOTE | 2022-01-29 23:28 | Emergency Department Report ---
ED General Adult HPI - General Chief complaint: Rectal Pain Stated complaint: ANAL PAIN Source: patient Mode of arrival: Ambulatory Limitations: No Limitations - History of Present Illness Initial comments: Patient is a 26-year-old -[place] male with no past medical history presents to the ED with complaint of acute onset persistent rectal pain due to possible hemorrhoids for the last 1 week. Patient states that the pain is intermittent and worse with having a bowel movement. Patient denies rectal bleeding, nausea and vomiting, abdominal pain, fever, chills, nausea, vomiting, back pain, hematuria, dysuria, urinary frequency and urgency, chest pain or shortness of breath. MD Complaint: Rectal pain; hemorrhoids -: Sudden, week(s) (1) Location: buttocks Radiation: non-radiation Severity scale (0 -10): 3 Quality: aching Consistency: intermittent Improves with: none Worsens with: other (bowel movement) Associated Symptoms: denies other symptoms. denies: confusion, chest pain, cough, diaphoresis, fever/chills, headaches, loss of appetite, malaise, nausea/vomiting, seizure, shortness of breath, syncope, weakness Treatments Prior to Arrival: none - Related Data Previous Rx's Medication Instructions Recorded Last Taken Type Salicylic Acid [Compound W] 9.3 ml TP BID #1 each 12/13/18 Unknown Rx Ondansetron [Zofran Odt] 4 mg PO Q8HR PRN #15 tab.rapdis 03/25/19 Unknown Rx Cyclobenzaprine [Flexeril] 10 mg PO QHS PRN #20 tablet 09/19/19 Unknown Rx Ibuprofen [Motrin 800 MG tab] 800 mg PO Q8HR PRN #30 tablet 09/19/19 Unknown Rx Ketorolac [Toradol] 10 mg PO Q6H PRN #10 tablet 07/15/20 Unknown Rx Dibucaine 1% [Nupercainal] 1 applicatio [place] TID #1 tube 01/29/22 Unknown Rx Hydrocortisone [Anusol-Hc 2.5% TOP 30 gm RC Q12H PRN #1 tube 01/29/22 Unknown Rx CREAM] Ibuprofen [Motrin 800 MG tab] 800 mg PO Q8HR PRN #30 tablet 01/29/22 Unknown Rx Allergies Allergy/AdvReac Type Severity Reaction Status Date / Time No Known Allergies Allergy Verified 09/19/19 08:46 ED Review of Systems ROS: Stated complaint: ANAL PAIN Other details as noted in HPI Constitutional: denies: chills, fever Eyes: denies: eye pain, eye discharge, vision change ENT: denies: ear pain, throat pain Respiratory: denies: cough, shortness of breath, wheezing Cardiovascular: denies: chest pain, palpitations Endocrine: no symptoms reported Gastrointestinal: other (rectal pain). denies: abdominal pain, nausea, vomiting, diarrhea Genitourinary: denies: urgency, dysuria Musculoskeletal: denies: back pain, joint swelling, arthralgia Skin: denies: rash, lesions Neurological: denies: headache, weakness, paresthesias Psychiatric: denies: anxiety, depression Hematological/Lymphatic: denies: easy bleeding, easy bruising ED Past Medical Hx - Past Medical History Previous Medical History?: Yes Hx Psychiatric Treatment: Yes (bipolar & schizoprenia) - Surgical History Past Surgical History?: Yes - Social History Smoking Status: Current Every Day Smoker - Medications Home Medications: Home Medications Medication Instructions Recorded Confirmed Last Taken Type Salicylic Acid [Compound W] 9.3 ml TP BID #1 each 12/13/18 Unknown Rx Ondansetron [Zofran Odt] 4 mg PO Q8HR PRN #15 tab.rapdis 03/25/19 Unknown Rx Cyclobenzaprine [Flexeril] 10 mg PO QHS PRN #20 tablet 09/19/19 Unknown Rx Ibuprofen [Motrin 800 MG tab] 800 mg PO Q8HR PRN #30 tablet 09/19/19 Unknown Rx Ketorolac [Toradol] 10 mg PO Q6H PRN #10 tablet 07/15/20 Unknown Rx Dibucaine 1% [Nupercainal] 1 applicatio [place] TID #1 tube 01/29/22 Unknown Rx Hydrocortisone [Anusol-Hc 2.5% TOP 30 gm RC Q12H PRN #1 tube 01/29/22 Unknown Rx CREAM] Ibuprofen [Motrin 800 MG tab] 800 mg PO Q8HR PRN #30 tablet 01/29/22 Unknown Rx ED Physical Exam - General Limitations: No Limitations General appearance: alert, in no apparent distress - Head Head exam: Present: atraumatic, normocephalic, normal inspection - Eye Eye exam: Present: normal appearance, PERRL, EOMI Pupils: Present: normal accommodation - ENT ENT exam: Present: normal exam, normal orophraynx, mucous membranes moist, TM's normal bilaterally, normal external ear exam - Neck Neck exam: Present: normal inspection, full ROM. Absent: tenderness - Respiratory Respiratory exam: Present: normal lung sounds bilaterally. Absent: respiratory distress, wheezes, rales, rhonchi, chest wall tenderness, accessory muscle use, decreased breath sounds, prolonged expiratory - Cardiovascular Cardiovascular Exam: Present: regular rate, normal rhythm, normal heart sounds. Absent: systolic murmur, diastolic murmur, rubs, gallop - GI/Abdominal GI/Abdominal exam: Present: soft, normal bowel sounds. 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 Absent: black stool, bloody stool - Extremities Exam Extremities exam: Present: normal inspection, full ROM, normal capillary refill - Back Exam Back exam: Present: normal inspection, full ROM. Absent: tenderness, CVA tenderness (R), CVA tenderness (L), muscle spasm, paraspinal tenderness, vertebral tenderness - Neurological Exam Neurological exam: Present: alert, oriented X3, CN II-XII intact, normal gait, reflexes normal - Psychiatric Psychiatric exam: Present: normal affect, normal mood - Skin Skin exam: Present: warm, dry, intact, normal color. Absent: rash ED Course Vital Signs 01/29/22 21:38 Temperature 98.1 F Pulse Rate 84 Respiratory 18 Rate Blood Pressure 131/81 O2 Sat by Pulse 99 Oximetry ED Medical Decision Making - Medical Decision Making This is a 26-year-old -[place] male with no past medical history presents to the ED with complaint of acute onset persistent rectal pain due to possible hemorrhoids for the last 1 week. Patient states that the pain is intermittent and worse with having a bowel movement. In the ED, patient is alert and oriented x3 and is not in any distress. Patient is hemodynamically stable. Patient was discharged home on medications for pain and also for suspected hemorrhoids. Patient was advised to follow-up with the GI physician Dr. Andrews for further evaluation in 7 to 10 days. Patient is advised return to the ED immediately if symptoms get worse. - Differential Diagnosis Internal hemorrhoids; constipation; external hemorrhoids; rectal abscess Critical care attestation.: If time is entered above; I have spent that time in minutes in the direct care of this critically ill patient, excluding procedure time. ED Disposition Clinical Impression: Anal or rectal pain, Internal hemorrhoids without complication Disposition: 01 HOME / SELF CARE / HOMELESS Is pt being admited?: No Does the pt Need Aspirin: No Condition: Stable Instructions: Hemorrhoids, [id number], Nonsurgical Procedures for Hemorrhoids, Care After Additional Instructions: Take pain medication with by mouth as needed for pain, apply the medication to the affected areas as advised. Increase your fiber intake to minimize on your symptoms, follow-up with a GI physician Dr. Andrews for further evaluation. Return to the ED immediately if symptoms get worse. Prescriptions: Hydrocortisone [Anusol-Hc 2.5% TOP CREAM] 30 gm RC Q12H PRN #1 tube PRN Reason: Hemorrhoids Ibuprofen [Motrin 800 MG tab] 800 mg PO Q8HR PRN #30 tablet PRN Reason: Pain , Severe (7-10) Dibucaine 1% [Nupercainal] 1 applicatio AK TID #1 tube Referrals: ELMER ANDREWS MD [Staff Physician] - 7-10 days Time of Disposition: 23:26 Print Language: FINNISH
== END 2022-01-30 00:15 | disposition home or self-care (01) ==
LOC: ED 20:06
DX: K62.89 Other specified diseases of anus and rectum (principal); K64.8 Other hemorrhoids; F31.9 Bipolar disorder, unspecified; F20.9 Schizophrenia, unspecified
CPT/HCPCS: 99282

== ENCOUNTER 2022-03-03 12:44 | Emergency (ER) | payer OTHER ==
[2022-03-03 13:23] VITALS: BP 170/86
[2022-03-03] MEDS ORDERED: IBUPROFEN 800 MG TAB PO ONE (13:30)
--- NOTE | 2022-03-03 13:30 | Emergency Department Report ---
Minor Respiratory - HPI Chief Complaint: Fever Stated Complaint: BODYACHES Time Seen by Provider: 03/03/22 13:28 Duration: 3 Days Pain Location: Other Severity: mild Minor Respiratory: Yes Able to Tolerate Fluids, Yes Fever, No Rhinorrhea, No Sore Throat, No Ear Pain, No Cough, No Sick Contacts, No Hemoptysis, No Chest Pain, No Shortness of Breath Other History: Patient is a pleasant 26-year-old male that comes to the emergency room with body aches and fever. He had Covid prior. He did not get a flu shot. He denies any abdominal pain. He denies cough. He denies shortness of breath. He denies chest pain. He denies abdominal pain. He denies headache. He denies sinus congestion. He denies any nausea vomiting diarrhea. Only complaint is body aches ED Review of Systems ROS: Stated complaint: BODYACHES Other details as noted in HPI Comment: All other systems reviewed and negative ED Past Medical Hx - Past Medical History Previous Medical History?: Yes Hx Psychiatric Treatment: Yes (bipolar & schizoprenia) - Surgical History Past Surgical History?: No - Family History Family history: no significant - Social History Smoking Status: Never Smoker Substance Use Type: None - Medications Home Medications: Home Medications Medication Instructions Recorded Confirmed Last Taken Type Ibuprofen [Motrin] 800 mg PO Q8HR PRN #30 tablet 03/03/22 Unknown Rx Minor Respiratory Exam - Exam General: Vital signs noted. No distress. Alert and acting appropriately. HEENT: Yes Pharyngeal Erythema, Yes Moist Mucous Membranes, No Pharyngeal Exudates, No Rhinorrhea, No Conjuctival Injection, No Frontal Tenderness, No Maxillary Tenderness Ear: Neither TM Bulge, Neither TM Erythema, Neither EAC Pain, Neither EAC Discharge Neck: Yes Supple, No Adenopathy Lungs: Yes Good Air Exchange, No Wheezes, No Ronchi, No Stridor, No Cough, No Labored Respirations, No Retractions, No Use of Accessory Muscles, No Other Abnormal Lung Sounds Heart: Yes Regular, No Murmur Abdomen: Yes Normal Bowel Sounds, No Tenderness, No Peritoneal Signs Skin: No Rash, No Edema Neurologic: Alert and oriented, no deficits. Musculoskeletal: Unremarkable. ED Course Vital Signs 03/03/22 13:17 Temperature 100.0 F H Pulse Rate 105 H Respiratory 22 Rate Blood Pressure 170/86 Blood Pressure 170/86 [Right] O2 Sat by Pulse 97 Oximetry ED Medical Decision Making - Radiology Data Radiology results: report reviewed, image reviewed nap - Medical Decision Making X-ray noted to be without infiltrate or consolidation. Vital Signs 03/03/22 13:17 Temperature 100.0 F H Pulse Rate 105 H Respiratory 22 Rate Blood Pressure 170/86 Blood Pressure 170/86 [Right] O2 Sat by Pulse 97 Oximetry Patient is ambulatory, nonill and nontoxic on exam. He has a mild fever of 100 with sinus tach around 100. He is not hypotensive. His oxygen saturation is 97 to 99% on room air. Patient symptoms appear to be viral. We will treat him conservatively. He understands that in 48 hours he needs to be rechecked by his primary care. Patient being discharged home with discharge plan of care including diet, activity, medications and follow-up. - Differential Diagnosis uri Critical care attestation.: If time is entered above; I have spent that time in minutes in the direct care of this critically ill patient, excluding procedure time. ED Disposition Clinical Impression: URI (upper respiratory infection) Qualifiers: URI type: unspecified URI Qualified Code(s): J06.9 - Acute upper respiratory infection, unspecified Disposition: 01 HOME / SELF CARE / HOMELESS Is pt being admited?: No Does the pt Need Aspirin: No Condition: Stable Instructions: Viral Respiratory Infection, [id number] Additional Instructions: Motrin or Tylenol for fever stay well-hydrated with water Follow-up with PCP if symptoms persist Referral below Medications as ordered today Diet as tolerated Activity as tolerated Prescriptions: Ibuprofen [Motrin] 800 mg PO Q8HR PRN #30 tablet PRN Reason: Pain, Moderate (4-6) Referrals: MANSI SOLANO MD [Staff Physician] - 3-5 Days Forms: Work/School Release Form(ED) Time of Disposition: 13:53
--- NOTE | 2022-03-03 13:56 | XRay Report ---
CHEST 2 VIEWS INDICATION / CLINICAL INFORMATION: sob. COMPARISON: Chest x-ray 07/14/2020 FINDINGS: SUPPORT DEVICES: None. HEART / MEDIASTINUM: No significant abnormality. LUNGS / PLEURA: No significant pulmonary or pleural abnormality. No pneumothorax. BONES: No significant osseous abnormality. ADDITIONAL FINDINGS: No significant additional findings. IMPRESSION: 1. No active cardiopulmonary disease. Signer Name: Janusz Brink II, MD Signed: 03/03/2022 1:52 PM Workstation Name: [id number]
== END 2022-03-03 16:51 | disposition home or self-care (01) ==
LOC: ED 12:44
DX: J06.9 Acute upper respiratory infection, unspecified (principal)
CPT/HCPCS: 71046; 99283